=== PATIENT | female | born 1970 | race Two or more races ===

== ENCOUNTER 2024-11-04 09:48 | Outpatient (CLI) | payer OTHER | END 2024-11-04 10:05 | disposition home or self-care (01) | LOC: MAMO-SONO 09:48 | PROVIDERS: ATTEND Specialist | DX: N60.01 Solitary cyst of right breast (principal); N60.02 Solitary cyst of left breast; D25.2 Subserosal leiomyoma of uterus; N84.0 Polyp of corpus uteri ==